=== PATIENT | male | born 1990 | race Caucasian/White ===

== ENCOUNTER 2020-05-26 09:55 | Outpatient (CLI) | payer SELFPAY ==
[2020-05-28 16:15] LABS: Patient Race White; SARS-CoV-2 Specimen Source Nasal
[2020-05-28 17:35] LABS: SARS-CoV-2 RNA Detected (Undetected)
== END 2020-05-26 10:15 ==
PROVIDERS: PCP Family Medicine; Visit Provider Family Medicine
DX: Z20.828 Contact with and (suspected) exposure to other viral communicable diseases (principal)
CPT/HCPCS: U0003